=== PATIENT | female | born 1960 | race Caucasian/White ===

== ENCOUNTER 2017-10-21 09:10 | Emergency (ER) | payer BC, MEDICAID ==
[~2017-10-21] VITALS: Ht 162.6 cm; Wt 88.5 kg
[2017-10-21 09:19] VITALS: BP_SYST 127
[2017-10-21 09:40] VITALS: BP_SYST 120
== END 2017-10-21 10:07 | disposition home or self-care (01) ==
LOC: SED 09:10
DX: J06.9 Acute upper respiratory infection, unspecified (principal); B35.3 Tinea pedis
CPT/HCPCS: 99283